=== PATIENT | female | born 1960 | race African-American/Black ===

== ENCOUNTER 2025-04-03 18:06 | Emergency (ER) | payer SELFPAY ==
[~2025-04-03] VITALS: Ht 160 cm; Wt 55.0 kg
[2025-04-03 18:10] VITALS: BP 149/87; PULSE 71; RESP 16; TEMP 36.2; O2SAT 98
== END 2025-04-03 21:22 | disposition home or self-care (01) ==
LOC: ER 18:06
DX: F10.129 Alcohol abuse with intoxication, unspecified (principal); Y90.9 Presence of alcohol in blood, level not specified
CPT/HCPCS: 99283; A4606